=== PATIENT | female | born 1965 | race Caucasian/White ===

== ENCOUNTER → 2016-05-02 | Outpatient (CLI) | payer BC ==
[~2016-05-02] MED LIST: ATOR-54 PO; CETITAB27 PO; CYCL10TA6 PO; IBUP-1050 PO; IMD/2 PO; LEVO75TA5 PO; METH4PAK PO; OXYC1TAB3 PO
[2016-05-02 12:37] LABS: CHOLESTEROL/HDL RATIO 3.2; THYROID STIMULATING HORMONE 1.64 uIu/ml (0.300-4.500)
[2016-05-02 12:50] LABS: ESTIMATED AVERAGE GLUCOSE 117 mg/dl; HA1C FLAG Normal (Normal)
== END | disposition home or self-care (01) ==
LOC: C.LABBFT 08:59
PROVIDERS: ATTEND Internal Medicine
DX: E78.00 Pure hypercholesterolemia, unspecified (principal); R73.01 Impaired fasting glucose; E03.9 Hypothyroidism, unspecified

== ENCOUNTER 2016-07-29 09:36 | Emergency (ER) | payer BC ==
[~2016-07-29] VITALS: Ht 162.6 cm; Wt 95.0 kg
[~2016-07-29 09:36] MED LIST changes: -CETITAB27 PO; -CYCL10TA6 PO; -IBUP-1050 PO; -METH4PAK PO; -OXYC1TAB3 PO
[2016-07-29 09:38] VITALS: TEMP 36.6; Ht 162.6 cm; Wt 95.0 kg
[2016-07-29] MEDS ORDERED: KETOROLAC TROMETHAMINE 30 MG/ML VIAL IV STA (09:50)
[2016-07-29] MEDS ORDERED: ONDANSETRON INJ 2 MG/ML 2 ML VIAL IV STA (09:50)
[2016-07-29] MEDS ORDERED: CYCLOBENZAPRINE HCL 10 MG TAB PO STA (09:50)
[2016-07-29] MEDS ORDERED: MoRPHine SULFATE 10 MG/ML CARP/VIAL IV STA (09:50)
[2016-07-29] MEDS ORDERED: CETITAB27 PO (10:16)
[2016-07-29] MEDS ORDERED: IBUP-1050 PO (10:16)
--- NOTE | 2016-07-29 10:50 | DIAGNOSTIC IMAGING REPORT ---
LUMBAR SPINE 5 VIEWS HISTORY: Pain low back pain COMPARISON: None. FINDINGS: There is no fracture. No subluxation. Considerable degenerative disc change L5-S1. All remaining disc spaces are well-preserved. IMPRESSION: Considerable degenerative disc change L5-S1. Otherwise negative study Electronically signed by: Ovidio Pastor M.D. 07/29/2016 10:48 AM Dictated Date/Time: 07/29/2016 10:48 AM
[2016-07-29] MEDS ORDERED: DEXAMETHASONE SOD INJ 10 MG/ML VIAL IV ONE (11:15)
[2016-07-29] MEDS ORDERED: METH4PAK PO (11:46)
[2016-07-29] MEDS ORDERED: OXYC1TAB3 PO (11:46)
[2016-07-29] MEDS ORDERED: CYCL10TA6 PO (11:46)
--- NOTE | 2016-07-29 12:05 | EMERGENCY ROOM VISIT NOTE ---
ED Visit Note First contact with patient: 09:44 CHIEF COMPLAINT: Low back pain HISTORY OF PRESENT ILLNESS: This 51-year-old female presents to the ER with chief complaint of severe low back pain. The patient states she was doing laundry this morning and is unsure what she did put got severe pain in her lower back. She states the pain initially radiated down the back of her right leg to her knee but currently does not have any radicular pain. The patient denies any numbness and tingling. The patient denies any loss of bowel or bladder control. The patient denies any saddle anesthesia. The patient had a laminectomy at the L5-S1 level in [place] [address] Healy. She has not had any problems since that time. REVIEW OF SYSTEMS: 6 system review was performed and was negative unless stated otherwise in history of present illness. PMH: The patient is healthy; back surgery as noted in history of present illness. SOCIAL HISTORY: Patient lives with her PHYSICAL EXAM: Vital Signs normal: Reviewed Nurse's notes and agree. GENERAL: 51-year-old white female appears uncomfortable secondary to back pain. MENTAL STATUS: Alert and oriented in no acute distress. LUMBAR SPINE: No gross bony abnormality noted. Patient is nontender to palpation over the spinous processes. She is tender to palpation over the right paravertebral region, left side nontender. Limited range of motion in all directions secondary to pain. Positive straight leg raise on the right. Unable to have the patient relax to elicit reflexes. EMERGENCY DEPARTMENT COURSE: The patient was evaluated. IV access was obtained. The patient was given morphine 6 mg IV, Zofran 4 mg IV push, Toradol 30 mg IV and Flexeril 10 mg by mouth. X-ray of the lumbar spine was ordered and interpreted by the radiologist and myself. DIAGNOSTICS:LUMBAR SPINE 5 VIEWS HISTORY: Pain low back pain COMPARISON: None. FINDINGS: There is no fracture. No subluxation. Considerable degenerative disc change L5-S1. All remaining disc spaces are well-preserved. IMPRESSION: Considerable degenerative disc change L5-S1. Otherwise negative study Electronically signed by: Ovidio Pastor M.D. The patient was informed of the findings. The nurse then informed me that when she gave the patient morphine her O2 dropped to 88% on room air. She was then placed on 2 L of oxygen via nasal cannula. The patient was reevaluated and still had pain in her back but was able to sit and ambulate without any assistance. The patient was given Decadron 10 mg IV. I told her due to her low oxygen level I cannot give her any additional narcotics. The patient verbalized understanding. The patient was reevaluated again and was feeling much better. The patient was discharged home with her driving. DIAGNOSIS: Low back pain with right radiculopathy DISCHARGE INSTRUCTIONS AND TREATMENT: Take Medrol dosepak as prescribed. Ibuprofen 600 mg every 6 hours with food for pain. Rx is given for OxyIR 5 mg. 1 -2 tablets every 6 hours as needed for more severe pain. Dispense [address] taking the OxyContin. Patient was also given Rx for Flexeril 10 mg. One tablet p.o. every 8 hours for muscle spasms. Dispense [address] taking the Flexeril. Avoid staying in any one position for an extended period of time. Recommend follow-up with your family physician for reevaluation on Friday and further med pain medications if needed. Problem List Medical Problems: (1) Hypercholesteremia Status: Chronic (2) Hypothyroid Status: Chronic Surgical Problems: (1) S/P lumbar spinal fusion Status: Resolved Current/Historical Medications Scheduled Atorvastatin (Lipitor), 20 MG PO QPM Cetirizine/Pseudoephedrine (Zyrtec-D Er 5MG/120MG), 1 TAB PO DAILY Cyclobenzaprine Hcl (Flexeril), 10 MG PO TID Levothyroxine Sodium (Levothyroxine Sodium), 75 MCG PO QAM Methylprednisolone (Medrol Dosepak), 0 PO DAILY Scheduled PRN Ibuprofen (Advil), 200-600 MG PO Q4H PRN for Pain Loperamide Hcl (Imodium), 2 MG PO DAILY PRN for Diarrhea Oxycodone Immediate Rel Tab (Roxicodone Ir), 1-2 TAB PO Q6 PRN for Pain Allergies Coded Allergies: Ofloxacin (Verified Allergy, Mild, RASH, 04/26/15) Sulfamethoxazole (Verified Allergy, Unknown, DOESN'T REMEMBER, 04/26/15) Trimethoprim (Verified Allergy, Unknown, DOESN'T REMEMBER, 04/26/15) Vital Signs Date Time Temp Pulse Resp B/P (MAP) Pulse Ox O2 Delivery O2 Flow Rate FiO2 07/29/16 10:52 60 16 137/85 95 Nasal Cannula 2.0 07/29/16 09:38 36.6 84 20 151/93 96 Room Air Medications Administered Medications (Trade) Dose Ordered Sig/Pooja Route Start Time Stop Time Status Last Admin Dose Admin Morphine Sulfate (MoRPHine SULFATE INJ) 6 mg NOW STAT IV 07/29/16 09:50 07/29/16 09:58 DC 07/29/16 10:23 6 MG Ondansetron HCl (Zofran Inj) 4 mg NOW STAT IV 07/29/16 09:50 07/29/16 09:58 DC 07/29/16 10:23 4 MG Ketorolac Tromethamine (Toradol Inj) 30 mg NOW STAT IV 07/29/16 09:50 07/29/16 09:58 DC 07/29/16 10:23 30 MG Cyclobenzaprine HCl (Flexeril Tab) 10 mg NOW STAT PO 07/29/16 09:50 07/29/16 09:58 DC 07/29/16 10:23 10 MG Dexamethasone Sodium Phosphate (Decadron Inj) 10 mg NOW ONCE IV 07/29/16 11:15 07/29/16 11:16 DC 07/29/16 11:32 10 MG Departure Information Prescriptions Oxycodone Immediate Rel Tab (ROXICODONE IR) 5 Mg Tab 1-2 TAB PO Q6 Y for Pain, #20 TAB Prov: Domitila Pastor PA-C 07/29/16 Cyclobenzaprine Hcl (FLEXERIL) 10 Mg Tab 10 MG PO TID for 7 Days, #21 TAB Prov: Domitila Pastor PA-C 07/29/16 Methylprednisolone (MEDROL DOSEPAK) 4 Mg Guy 0 PO DAILY, #1 PKT Prov: Domitila Pastor PA-C 07/29/16 Referrals Rafael Ro M.D. (PCP) Patient Instructions [facility]
[2016-07-29 12:19] VITALS: BP 115/77; PULSE 56; O2SAT 96
== END 2016-07-29 12:21 | disposition home or self-care (01) ==
LOC: C.EDB 09:37
DX: M54.41 Lumbago with sciatica, right side (principal); E78.00 Pure hypercholesterolemia, unspecified; E03.9 Hypothyroidism, unspecified

== ENCOUNTER → 2016-08-12 | Outpatient (CLI) | payer BC ==
[~2016-08-12] MED LIST changes: +CETITAB27 PO; +GADAVIST IV PRN; +IBUP-1050 PO; +OXYC1TAB3 PO
--- NOTE | 2016-08-12 11:21 | DIAGNOSTIC IMAGING REPORT ---
MRI OF THE LUMBAR SPINE WITH AND WITHOUT CONTRAST CLINICAL HISTORY: Lumbar disc disorder. Low back radiating into both lower extremities. COMPARISON STUDY: Lumbar spine radiograph July 29, 2016 and MRI of the lumbar spine January 07, 2012. TECHNIQUE: Utilizing a 1.5 Afia magnet and dedicated coil, multiplanar, multiecho imaging of the lumbar spine was performed before and after uneventful IV administration of Gadavist. FINDINGS: For purposes of numbering on this exam, the L5-S1 disc space is assigned to axial image 27 of 30. Alignment of lumbar spine is anatomic. Conus terminates at the upper L1 level. There is no intracanalicular mass or fluid collection. There are postsurgical findings consistent with a posterior decompression at the L5-S1 level. There is no intracanalicular mass or fluid collection. There is disc space narrowing with discogenic changes at the L5-S1 level. There is desiccation of the L4-L5 disc. The appearance of the lumbar spine is unchanged since exam of January 07, 2012. L1-2: The central canal and neural foramen are patent. L2-3: The central canal and neural foramen are patent. L3-4: There is mild facet arthrosis. The central canal and neural foramen are patent. L4-5: There is mild facet arthrosis. There is minimal disc bulge. Central canal and neural foramen are patent. L5-S1: There is no residual central canal stenosis status post decompression. There is a small left foraminal disc protrusion. There is mild narrowing of the left neural foramen. This is unchanged. IMPRESSION: 1. Status post L5-S1 posterior decompression. No significant change in appearance of the lumbar spine since exam of January 07, 2012. 2. Disc space narrowing with discogenic changes at L5-S1 and a small left foraminal disc protrusion at this level with mild narrowing of the left neural foramen. Electronically signed by: Sylvain Ziegler M.D. 08/12/2016 11:20 AM Dictated Date/Time: 08/12/2016 11:13 AM
== END | disposition home or self-care (01) ==
LOC: C.MRI 09:42
PROVIDERS: ATTEND Physician Assistant Medical
DX: M51.06 Intervertebral disc disorders with myelopathy, lumbar region (principal); M54.16 Radiculopathy, lumbar region; R32 Unspecified urinary incontinence

== ENCOUNTER → 2016-10-10 | Outpatient (CLI) | payer BC ==
[~2016-10-10] MED LIST changes: -GADAVIST IV PRN
--- NOTE | 2016-10-10 13:58 | MAMMOGRAPHY REPORT ---
BILATERAL DIGITAL SCREENING MAMMOGRAM TOMOSYNTHESIS WITH CAD: 10/10/2016 CLINICAL HISTORY: Routine screening. Patient has no complaints. TECHNIQUE: Breast tomosynthesis in addition to standard 2D mammography was performed. Current study was also evaluated with a Computer Aided Detection (CAD) system. COMPARISON: Comparison is made to exams dated: 10/10/2015 mammogram, 10/06/2014 mammogram, 09/30/2013 m ammogram, 09/24/2012 mammogram, 09/19/2011 mammogram, and 11/16/2009 mammogram - [facility]. BREAST COMPOSITION: There are scattered areas of fibroglandular density in both breasts. FINDINGS: No suspicious masses, calcifications, or areas of architectural distortion are noted in ei ther breast. There has been no significant interval change compared to prior exams. Bilateral benign -appearing calcifications are not significantly changed, including grouped punctate calcifications in the left upper outer quadrant which are stable dating back to at least the 2008 exam. IMPRESSION: ACR BI-RADS CATEGORY 2: BENIGN There is no mammographic evidence of malignancy. A 1 year screening mammogram is recommended. The pa tient will receive written notification of the results. Approximately 10% of breast cancers are not detected with mammography. A negative mammographic report should not delay biopsy if a clinically suggestive mass is present. Danica Saucedo M.D. /:10/10/2016 07:44:58 Senior Electronics Engineer: Poonam OLVERA)(M), [facility] letter sent: Normal 1/2 BI-RADS Code: ACR BI-RADS Category 2: Benign
== END | disposition home or self-care (01) ==
LOC: C.MAMM 07:23
PROVIDERS: ATTEND Obstetrics & Gynecology
DX: Z12.31 Encounter for screening mammogram for malignant neoplasm of breast (principal)

== ENCOUNTER → 2016-11-15 | Outpatient (CLI) | payer BC ==
--- NOTE | 2016-11-15 15:26 | DIAGNOSTIC IMAGING REPORT ---
LEFT LOWER EXTREMITY VENOUS DOPPLER HISTORY: Left leg swelling. COMPARISON STUDY: Venous Doppler 09/14/2013. FINDINGS: There is normal compressibility, flow, and augmentation within the left lower extremity deep venous system. IMPRESSION: No DVT within the left lower extremity. Electronically signed by: Fletcher Coy M.D. 11/15/2016 3:24 PM Dictated Date/Time: 11/15/2016 3:24 PM
== END | disposition home or self-care (01) ==
LOC: C.ULTR 14:53
PROVIDERS: ATTEND Physician Assistant Medical
DX: M79.89 Other specified soft tissue disorders (principal)

== ENCOUNTER → 2016-11-15 | Outpatient (CLI) | payer BC ==
[2016-11-15 12:58] LABS: BLOOD UREA NITROGEN 18 mg/dl (7-18); CREATININE 0.68 mg/dl (0.60-1.20); GLUCOSE 98 mg/dl (70-99)
[2016-11-15 12:59] LABS: ALT/SGPT 33 U/L (12-78); AST/SGOT 21 U/L (15-37); BUN/CREATININE RATIO 26.6 (10-20); CALCIUM 9.1 mg/dl (8.5-10.1); CARBON DIOXIDE 27 mmol/L (21-32); CHLORIDE 110 mmol/L (98-107); POTASSIUM 4.3 mmol/L (3.5-5.1); SODIUM 143 mmol/L (136-145)
[2016-11-15 13:09] LABS: ALB/GLOB RATIO 0.9 (0.9-2); ALKALINE PHOSPHATASE 75 U/L (45-117); CHOLESTEROL 135 mg/dl (0-200); CHOLESTEROL/HDL RATIO 2.5; HDL CHOLESTEROL 55 mg/dl; LDL CHOLESTEROL CALCULATED 62 mg/dl; TRIGLYCERIDES 88 mg/dl (0-150); VERY LOW DENSITY LIPOPROT CALC 18 mg/dl
[2016-11-15 13:10] LABS: ESTIMATED AVERAGE GLUCOSE 117 mg/dl; HA1C FLAG Normal (Normal)
== END | disposition home or self-care (01) ==
LOC: C.LABBFT 08:18
PROVIDERS: ATTEND Internal Medicine
DX: E78.00 Pure hypercholesterolemia, unspecified (principal); E03.9 Hypothyroidism, unspecified; R73.01 Impaired fasting glucose

== ENCOUNTER → 2017-05-23 | Outpatient (CLI) | payer BC ==
[~2017-05-23] MED LIST changes: -OXYC1TAB3 PO
[2017-05-23 12:20] LABS: HEMATOCRIT 45.1 % (37-47); HEMOGLOBIN 15.2 g/dL (12.0-16.0); MEAN CELL VOLUME 89.8 fL (80-100); MEAN CORPUSCULAR HEMOGLOBIN 30.3 pg (25-34); MEAN CORPUSCULAR HGB CONC 33.7 g/dl (32-36); MEAN PLATELET VOLUME 9.6 fL (7.4-10.4); PLATELET COUNT 416 K/uL (130-400); RED CELL DISTRIBUTION WIDTH CV 14.6 % (11.5-14.5); RED CELL DISTRIBUTION WIDTH SD 47.7 fL (36.4-46.3); WHITE BLOOD COUNT 9.69 K/uL (4.8-10.8)
[2017-05-23 12:45] LABS: HEMOGLOBIN A1C 5.9 % (4.5-5.6)
[2017-05-23 13:25] LABS: ALBUMIN 3.3 gm/dl (3.4-5.0); ALT/SGPT 26 U/L (12-78); AST/SGOT 16 U/L (15-37); BLOOD UREA NITROGEN 20 mg/dl (7-18); CALCIUM 8.6 mg/dl (8.5-10.1); CARBON DIOXIDE 31 mmol/L (21-32); CREATININE 0.95 mg/dl (0.60-1.20); GLUCOSE 93 mg/dl (70-99); POTASSIUM 3.7 mmol/L (3.5-5.1); SODIUM 143 mmol/L (136-145)
[2017-05-23 13:36] LABS: ALKALINE PHOSPHATASE 79 U/L (45-117); CHOLESTEROL 167 mg/dl (0-200); LDL CHOLESTEROL CALCULATED 102 mg/dl; TOTAL PROTEIN 7.2 gm/dl (6.4-8.2)
== END | disposition home or self-care (01) ==
LOC: C.LABBFT 08:23
PROVIDERS: ATTEND Internal Medicine
DX: E78.00 Pure hypercholesterolemia, unspecified (principal); E03.9 Hypothyroidism, unspecified; R73.01 Impaired fasting glucose

== ENCOUNTER 2024-10-14 10:58 | Inpatient (IN) ==
[2024-10-14 12:38] LABS: Hematocrit (blood only) 42.5 % (37.0-47.0); Hemoglobin 14.0 g/dl (12.0-16.0); Mean Corpuscular Hemoglobin 28.6 pg (25.0-34.0); Mean Corpuscular Volume 86.7 fL (80.0-100.0); Platelet Count 468 K/uL (130-400); RDW Standard Deviation 44.2 fL (36.4-46.3); Red Blood Count 4.90 M/uL (4.20-5.40); White Blood Count 16.34 K/ul (4.8-10.8)
[2024-10-14] MEDS: SODIUM CHLORIDE 0.9% 1,000 ML IV ONE ×2 (12:47→16:19)
--- NOTE | 2024-10-14 12:51 | Emergency Department Note ---
ED Provider Note CHIEF COMPLAINT: Low blood pressure, weakness, lightheadedness HISTORY OF PRESENTING ILLNESS: This 59-year-old female patient presents to the emergency department for evaluation of low blood pressure, weakness, and lightheadedness. The patient was seen by her PCP this morning and sent to the ER for her symptoms. I reviewed the patient's outpatient office visit note and her blood pressure in the office was 82/58. She has a history of vertigo in the past, but the symptoms do not feel the same. She also has new onset shortness of breath. She is not on any medications for hypertension per her office visit note. The patient was advised to come to the ER for further evaluation. REVIEW OF SYSTEMS: See HPI for pertinent positives and pertinent negatives. ALLERGIES: [] MEDICATIONS: [] PAST MEDICAL HISTORY: [] PHYSICAL EXAM: [] DIFFERENTIAL DIAGNOSIS: [] ED COURSE AND MEDICAL DECISION MAKING: HISTORY FROM INDEPENDENT HISTORIAN: [] MEDICATIONS GIVEN: [] MONITOR: Continuous business development executive: Order was placed for continuous business development executive. Patient was placed on the business development executive and continuous pulse ox. Patient was noted to be in normal sinus rhythm at an initial rate of [] bpm per my interpretation. EKG: EKG was interpreted by myself as []. INTERPRETATION OF LABS: I interpreted the labs with full lab results as below in the lab section of this note. Laboratory results pertinent to the emergent complaint are discussed in the MDM section below. The patient was advised to follow up with their PCP and/or specialist(s) for further outpatient monitoring and management of any abnormal results. INTERPRETATION OF IMAGING: Imaging studies were interpreted by myself and read by radiology as per the imaging section of this note. The patient was advised to follow up with their PCP and/or specialist(s) for further outpatient management of any non-emergent abnormal findings. [] EXTERNAL RECORDS REVIEWED: [] CHRONIC MEDICAL/SOCIAL CONDITIONS AFFECTING CARE: [] ESCALATION OF CARE CONSIDERED: [] CONSULTATIONS: [] PROCEDURES: [] SPLINTING: Definitive fracture care was performed by myself. The patient was placed in [] under my direction. Neurovascular status was rechecked and intact. MDM SUMMARY: I examined the patient. An IV lock was placed and labs were drawn. []. The patient is to have close outpatient follow-up with a recheck of their symptoms. To return to the ER sooner for any significantly changing or worsening symptoms. The [] educated on the treatment plan and the discharge instructions. The patient was discharged home in stable condition []. DIAGNOSIS: [] TREATMENT PLAN/DISCHARGE INSTRUCTIONS: [] You have been examined and treated today on an emergency basis only. Your workup in the ER did not reveal the need for further emergency workup/treatment or admission at this time. However, this ER visit is not a substitute for, or an effort to provide, complete comprehensive medical care. It is impossible to recognize and treat all injuries or illnesses in a single emergency department visit. It is therefore important that you follow up closely with your family doctor and/or your specialist(s) if applicable for further outpatient evaluation and treatment. It is also important that you follow-up with your family doctor and/or your specialist(s) for further monitoring and outpatient management of any abnormalities seen on your laboratory studies and/or imaging. Call your family doctor and/or specialist(s) as soon as possible to schedule an appointment for follow up from your emergency department visit. Past Med/Surg History Problem List (Updated 10/14/24 @ 10:43 by Power Wynn, ) Dyspnea Low blood pressure reading Lightheadedness Thyroid Nodule Prediabetes Left knee pain Face lesion Generalized anxiety disorder Hypothyroid (Chronic) Hypercholesteremia (Chronic) GERD (gastroesophageal reflux disease) (Chronic) Impaired fasting glucose Severe obstructive sleep apnea Nocturnal hypoxemia Obesity Lumbosacral radiculopathy at L5 (Acute) Situational anxiety Medical History Generalized anxiety disorder Internal hemorrhoids Mucosal abnormality of colon Urinary incontinence Osteomyelitis Chest pain "EST Negative 08-13-13" Surgical History History of ankle surgery S/P section History of lumbar laminectomy Status post tubal ligation S/P lumbar spinal fusion Family History Uncle Tobacco use Laryngeal cancer Mother Cancer History of pancreatectomy Ovarian cancer Grandfather (Maternal) FH: pancreatic cancer Colorectal cancer Daughter Breast cancer Grandmother (Paternal) Breast cancer Myocardial infarction Aunt Breast cancer Other Diabetes Denies family history of Prostate cancer Social History Smoking Status: Never smoker Second Hand Exposure: No; Do You Dip or Chew Tobacco: No; Hx Alcohol Use: No Hx Substance Use: No Preferred Language: Chadian Communication Ability: Effective Visual Impairment: No Limitations Hearing Ability: Normal marital status: Current Living Situation: Spouse current occupational status: employed Feels Safe at Home: Yes Diet: regular caffeine: Yes Dental Care, Regularly: Yes Physical Activity Frequency: Does not Exercise Physical Activity Frequency Comment: active at work Seatbelt Use: always Sunscreen Use: Yes Assistive Devices: Glasses Allergies Allergies Allergy/AdvReac Type Severity Reaction Status Date / Time ofloxacin Allergy Mild RASH Verified 10/14/24 10:26 sulfamethoxazole Allergy Unknown DOESN'T Verified 10/14/24 10:26 REMEMBER trimethoprim Allergy Unknown DOESN'T Verified 10/14/24 10:26 REMEMBER Home Meds Home Medications Medication Instructions Recorded Confirmed cetirizine 10 mg capsule 10 mg PO DIRECTED 11/20/18 10/14/24 multivitamin (Multiple Vitamins 1 tab PO DAILY 07/12/21 10/14/24 tablet) naproxen 250 mg tablet 250 mg PO BID PRN Pain 12/26/23 10/14/24 Previous Rx's Medication Instructions Recorded buspirone 15 mg tablet 15 mg PO BID #180 tabs 04/08/24 atorvastatin 20 mg tablet 20 mg PO HS #90 tabs 07/02/24 levothyroxine 100 mcg tablet 100 mcg PO DAILY #90 tabs 07/02/24 meclizine 25 mg chewable tablet 25 mg PO BID PRN dizziness #30 tabs 07/23/24 (Antivert) Results & Data (ED) Vital Signs Vital Signs - 24 hr 10/14/24 11:38 Temperature 36.9 C Temperature Source Oral Pulse Rate 89 Respiratory Rate 19 Blood Pressure 96/65 L Blood Pressure Mean 75 Pulse Oximetry 93 Oxygen Delivery Method Room Air Sepsis Recent Fever Within 48 Hours No Sepsis New/Unexplained Change in Mental Status No Sepsis Action Taken by Nursing No Action Required Laboratory Data 10/14/24 12:20 10/14/24 12:20 Lab Results 10/14/24 Range/Units 12:20 WBC 16.34 H (4.8-10.8) K/ul RBC 4.90 (4.20-5.40) M/uL Hgb 14.0 (12.0-16.0) g/dl Hct 42.5 (37.0-47.0) % MCV 86.7 (80.0-100.0) fL MCH 28.6 (25.0-34.0) pg MCHC 32.9 (32.0-36.0) g/dL RDW Std Deviation 44.2 (36.4-46.3) fL RDW Coeff of Bhumi 14.2 (11.5-14.5) % Plt Count 468 H (130-400) K/uL MPV 9.2 L (9.4-12.4) fL Administered Medications Sodium Chloride (Nss) 1,000 mls @ 999 mls/hr IV .Q1H1M ONE Stop: 10/14/24 13:39 Last Admin: 10/14/24 12:47 Dose: 999 mls/hr Documented By: TDM Discharge Plan Visit Data Chief Complaint: Hypotension Stated Complaint: REF BY DOC, LOW BLOOD PRESSURE ED Provider: Aruna Sood ED Midlevel Provider: Roz Madison Forms Stand Alone Forms: My [facility] Prescriptions Prescriptions: No Action buspirone 15 mg tablet 15 mg PO BID Qty: 180 3RF multivitamin [Multiple Vitamins] Tablet 1 tab PO DAILY Rx Instructions: otc unable to verify Zyrtec 10 mg capsule 10 mg PO DIRECTED Rx Instructions: otc unable to verify naproxen 250 mg tablet 250 mg PO BID PRN (Reason: Pain) levothyroxine 100 mcg tablet 100 mcg PO DAILY Qty: 90 3RF atorvastatin 20 mg tablet 20 mg PO HS Qty: 90 3RF meclizine [Antivert] 25 mg tablet,chewable 25 mg PO BID PRN (Reason: dizziness) Qty: 30 0RF Referrals Referrals: Power Wynn DO [Primary Care Provider] -
[2024-10-14 12:54] LABS: Alanine Aminotransferase 22 U/L (7-52); Albumin Globulin Ratio 0.7 (0.9-2); Alkaline Phosphatase 104 U/L (34-104); Anion Gap 8 (3-11); Bilirubin,Total 0.8 mg/dl (0.2-1.0); Blood Urea Nitrogen 18 mg/dl (6-23); Calcium 9.3 mg/dl (8.6-10.3); Carbon Dioxide 27 mmol/L (21-32); Chloride 103 mmol/L (98-107); Globulin 4.6 gm/dl (2.5-4.0); Glucose 129 mg/dl (70-99(Fasting)); Potassium 3.9 mmol/L (3.5-5.1); Sodium 138 mmol/L (136-145); Total Protein 7.9 gm/dl (6.0-8.3)
--- NOTE | 2024-10-14 12:59 | XRay Report ---
XR chest 1V portable CLINICAL HISTORY: Chest pain, nonspecific COMPARISON STUDY: Chest radiograph July 22, 2024. FINDINGS: Lung volumes are mildly diminished. Linear left basilar densities are noted. Mild right inf rahilar opacity is also suspected. Cardiomediastinal silhouette is stable. There is no evidence for p ulmonary edema. No pneumothorax or pleural effusion. IMPRESSION: Low lung volumes with bibasilar densities suggestive of atelectasis. Although less likel y, an infectious process could appear similar. Radiographic follow-up to ensure resolution is recomme nded. ACT 112: Negative or not required by law. Electronically signed by: Sylvain Ziegler M.D. 10/14/2024 12:57 PM
[2024-10-14 13:00] LABS: Immature Granulocytes # (auto) 0.09 K/uL (0.01-0.20); Immature Granulocytes % (auto) 0.6 %; Polychromasia 1+; Toxic Vacuolation 1+
[2024-10-14] MEDS: CEFEPIME 2000MG 2,000 MG/20 ML SYR IV STA (13:01)
--- NOTE | 2024-10-14 13:28 | Emergency Department Note ---
Impression & Plan Hypoxia, Hypotension, UTI (urinary tract infection), Pneumonia, Leukocytosis ED Provider Note NAME: YENI LIU AGE: 59 SEX: F : 1965 ARRIVES VIA: Walk-In INFORMANT: [Patient] ED PROVIDER(S): [Arpan Trammell MD] CHIEF COMPLAINT: Hypotension HISTORY OF PRESENT ILLNESS: The patient is a 59-year-old female who states she did not feel well yesterday. She was weak and tired and had some chills towards the evening. Today, she tried going to work but, felt unwell again. She was dizzy and faint. She had one of the nurses at her place of work run a blood pressure check and the value was low. She went to her doctor's office but, the blood pressure was again low and she was sent to the ED. Patient denies any chest pain. She did notice some mild shortness of breath. No sweating. No fever. No urinary complaints. No vomiting or abdominal pain, no diarrhea. PMHx/PSHx/Social Hx: See Below PHYSICAL EXAM: GENERAL: Patient is in no acute distress. HEENT: No acute trauma, normocephalic atraumatic, mucous membranes moist, no nasal congestion. NECK: No stridor, no adenopathy, no meningismus, trachea is midline. LUNGS: Clear to auscultation bilaterally, no wheeze, no rhonchi, breath sounds equal. Breath sounds diminished bilaterally. HEART: Without murmurs gallops or rubs, regular rate and rhythm. ABDOMEN: Soft, nontender, no peritonitis. EXTREMITIES: No cyanosis, full range of motion of all the joints without pain or difficulty. NEUROLOGIC: Oriented x 3, no acute motor or sensory deficits, no focal weakness. SKIN: No jaundice, no diaphoresis. DIFFERENTIAL DIAGNOSIS: Bacteremia or sepsis, pneumonia, UTI, anemia, electrolyte imbalance, dehydration, among others. EMERGENCY DEPARTMENT PROCEDURES: MEDICAL DECISION MAKING: There is a moderate leukocytosis, this would be consistent with infection. There is no anemia. Platelet count slightly elevated. No coagulopathy. No renal failure or significant electrolyte abnormality. Lactic acid level is not elevated making sepsis less likely. No concerning liver enzyme elevation. ECG shows a sinus rhythm, no ischemia or dysrhythmia. Cardiac enzyme testing x 1 is not consistent with acute cardiac injury. Urinalysis is suggestive of infection. Chest x-ray does show a potential bilateral lower lung pneumonia. On exam, the patient was somewhat hypotensive, she was complaining of chills. She did not seem toxic. She did become hypoxic during her ED stay requiring O2 supplementation. The patient was given IV saline, 2 L. This amount of saline should suffice for sepsis protocol at 30 cc/kg based on her ideal body weight. She was given IV cefepime as antibiotic coverage. She was given IV Tylenol. She was given a DuoNeb. The patient's blood pressure did improve after the IV fluids, at this point, she is not in need of IV pressor therapy. I did talk to the patient about a hospital stay, she is in agreement. I spoke with case management, the on-call hospitalist was consulted. In short, the reason for the hypotension is likely infection. Prior/Outside records/notes reviewed: None ECG per my interpretation: Indication was dizziness. The ECG shows a normal sinus rhythm with a rate of 84. There is some nonspecific ST change. There is no ST elevation, no PVCs. QTc is 411. Continuous Cardiac Monitoring per my interpretation: An order was placed for continuous cardiac monitoring. The monitor shows a rate of 81 with normal sinus rhythm. Imaging/x-ray results per my interpretation: Chest x-ray shows some congestion in both bases especially on the left, this could be consistent with atelectasis or possibly pneumonia. Chronic Medical/Social conditions affecting care: None Care/Management discussed with: Case management, the on-call hospitalist. Level of care consideration(s): After review of the information above and other included data: --I believe the patient requires escalation of care to admission Critical Care Note: I have personally spent 51 minutes of critical care time in the direct management of this patient. This includes bedside care, interpretation of diagnostic studies, and testing, discussion with consultants, patient, and family members, and other required patient management activities. This 51 minutes is in excess of all separately billable procedures. DISPOSITION: Admission Past Med/Surg History Problem List (Updated 10/14/24 @ 17:17 by Arpan Trammell MD) Leukocytosis (Acute) Pneumonia (Acute) UTI (urinary tract infection) (Acute) Hypotension (Acute) Hypoxia (Acute) Fever Dyspnea Low blood pressure reading Lightheadedness Thyroid Nodule Prediabetes Left knee pain Face lesion Generalized anxiety disorder Hypothyroid (Chronic) Hypercholesteremia (Chronic) GERD (gastroesophageal reflux disease) (Chronic) Impaired fasting glucose Severe obstructive sleep apnea Nocturnal hypoxemia Obesity Lumbosacral radiculopathy at L5 (Acute) Situational anxiety Medical History Internal hemorrhoids Mucosal abnormality of colon Urinary incontinence Osteomyelitis Chest pain "EST Negative 08-13-13" Surgical History History of ankle surgery S/P section History of lumbar laminectomy Status post tubal ligation S/P lumbar spinal fusion Family History Uncle Tobacco use Laryngeal cancer Mother Cancer History of pancreatectomy Ovarian cancer Grandfather (Maternal) FH: pancreatic cancer Colorectal cancer Daughter Breast cancer Grandmother (Paternal) Breast cancer Myocardial infarction Aunt Breast cancer Other Diabetes Denies family history of Prostate cancer Social History Smoking Status: Never smoker Second Hand Exposure: No; Do You Dip or Chew Tobacco: No; Hx Alcohol Use: No Hx Substance Use: No Preferred Language: Portuguese Communication Ability: Effective Visual Impairment: No Limitations Hearing Ability: Normal marital status: Current Living Situation: Spouse current occupational status: employed Feels Safe at Home: Yes Diet: regular caffeine: Yes Dental Care, Regularly: Yes Physical Activity Frequency: Does not Exercise Physical Activity Frequency Comment: active at work Seatbelt Use: always Sunscreen Use: Yes Assistive Devices: Glasses Allergies Allergies Allergy/AdvReac Type Severity Reaction Status Date / Time ofloxacin Allergy Mild RASH Verified 10/14/24 14:55 sulfamethoxazole Allergy Unknown DOESN'T Verified 10/14/24 14:55 REMEMBER trimethoprim Allergy Unknown DOESN'T Verified 10/14/24 14:55 REMEMBER Home Meds Home Medications Medication Instructions Recorded Confirmed cetirizine 10 mg capsule 10 mg PO DAILY PRN Congestion 11/20/18 10/14/24 multivitamin (Multiple Vitamins 1 tab PO DAILY 07/12/21 10/14/24 tablet) naproxen 250 mg tablet 250 mg PO BID PRN Pain 12/26/23 10/14/24 levothyroxine 100 mcg tablet 100 mcg PO DAILYBB 10/14/24 10/14/24 Previous Rx's Medication Instructions Recorded buspirone 15 mg tablet 15 mg PO BID #180 tabs 04/08/24 atorvastatin 20 mg tablet 20 mg PO HS #90 tabs 07/02/24 meclizine 25 mg chewable tablet 25 mg PO BID PRN dizziness #30 tabs 07/23/24 (Antivert) Results & Data (ED) Vital Signs Vital Signs - 24 hr 10/14/24 11:38 10/14/24 12:54 10/14/24 12:58 Temperature 36.9 C Temperature Source Oral Pulse Rate 89 78 Pulse Rate [Apical] 81 Pulse Rate from SpO2 Sensor Pulse Rhythm [Apical] Regular Pulse Strength [Apical] Normal Respiratory Rate 19 20 Respiratory Effort / Characteristics Non-Labored Spontaneous Respiratory Depth Normal Respiratory Pattern Regular Blood Pressure 96/65 L Blood Pressure [Left Arm] 107/67 Blood Pressure Mean 75 Blood Pressure Mean [Left Arm] 80 Pulse Oximetry 93 94 Oxygen Delivery Method Room Air Room Air Oxygen Flow Rate Sepsis Recent Fever Within 48 Hours No Sepsis New/Unexplained Change in Mental Status No Sepsis Action Taken by Nursing No Action Required 10/14/24 14:41 10/14/24 15:00 10/14/24 15:00 Temperature Temperature Source Pulse Rate 106 H Pulse Rate [Apical] 100 H Pulse Rate from SpO2 Sensor Pulse Rhythm [Apical] Pulse Strength [Apical] Respiratory Rate 24 30 H Respiratory Effort / Characteristics Non-Labored Spontaneous Respiratory Depth Normal Respiratory Pattern Regular Blood Pressure 134/82 Blood Pressure [Left Arm] 143/87 H Blood Pressure Mean 91 Blood Pressure Mean [Left Arm] 105 Pulse Oximetry 92 87 L Oxygen Delivery Method Room Air Room Air Oxygen Flow Rate Sepsis Recent Fever Within 48 Hours Sepsis New/Unexplained Change in Mental Status Sepsis Action Taken by Nursing 10/14/24 15:05 10/14/24 15:31 10/14/24 15:41 Temperature Temperature Source Pulse Rate 111 H 107 H Pulse Rate [Apical] Pulse Rate from SpO2 Sensor Pulse Rhythm [Apical] Pulse Strength [Apical] Respiratory Rate 23 Respiratory Effort / Characteristics Respiratory Depth Respiratory Pattern Blood Pressure 111/79 96/61 L Blood Pressure [Left Arm] Blood Pressure Mean 87 71 Blood Pressure Mean [Left Arm] Pulse Oximetry 93 92 83 L Oxygen Delivery Method Nasal Cannula Nasal Cannula Room Air Oxygen Flow Rate 6 6 Sepsis Recent Fever Within 48 Hours Sepsis New/Unexplained Change in Mental Status Sepsis Action Taken by Nursing 10/14/24 15:42 10/14/24 15:47 10/14/24 16:06 Temperature 37 C Temperature Source Oral Pulse Rate 108 H 109 H Pulse Rate [Apical] Pulse Rate from SpO2 Sensor 108 H 109 H Pulse Rhythm [Apical] Pulse Strength [Apical] Respiratory Rate 14 20 Respiratory Effort / Characteristics Respiratory Depth Respiratory Pattern Blood Pressure Blood Pressure [Left Arm] Blood Pressure Mean Blood Pressure Mean [Left Arm] Pulse Oximetry 92 93 Oxygen Delivery Method Nebulizer Nasal Cannula Oxygen Flow Rate 6 Sepsis Recent Fever Within 48 Hours Sepsis New/Unexplained Change in Mental Status Sepsis Action Taken by Nursing 10/14/24 16:30 Temperature Temperature Source Pulse Rate 98 H Pulse Rate [Apical] Pulse Rate from SpO2 Sensor 98 H Pulse Rhythm [Apical] Pulse Strength [Apical] Respiratory Rate 16 Respiratory Effort / Characteristics Respiratory Depth Respiratory Pattern Blood Pressure 93/70 L Blood Pressure [Left Arm] Blood Pressure Mean 77 Blood Pressure Mean [Left Arm] Pulse Oximetry 94 Oxygen Delivery Method Nasal Cannula Oxygen Flow Rate 6 Sepsis Recent Fever Within 48 Hours Sepsis New/Unexplained Change in Mental Status Sepsis Action Taken by [facility] Medications Current Medication List: was personally reviewed by me Laboratory Data Attestation: I reviewed the patient's lab results. 10/14/24 12:20 10/14/24 12:20 Lab Results 10/14/24 10/14/24 10/14/24 Range/Units 12:20 12:46 14:02 WBC 16.34 H (4.8-10.8) K/ul RBC 4.90 (4.20-5.40) M/uL Hgb 14.0 (12.0-16.0) g/dl Hct 42.5 (37.0-47.0) % MCV 86.7 (80.0-100.0) fL MCH 28.6 (25.0-34.0) pg MCHC 32.9 (32.0-36.0) g/dL RDW Std Deviation 44.2 (36.4-46.3) fL RDW Coeff of Bhumi 14.2 (11.5-14.5) % Plt Count 468 H (130-400) K/uL MPV 9.2 L (9.4-12.4) fL Immature Gran % (Auto) 0.6 % Neut % (Auto) 90.3 % Lymph % (Auto) 5.7 % [place] % (Auto) 2.5 % Eos % (Auto) 0.4 % Baso % (Auto) 0.5 % Neut # (Auto) 14.77 H (1.40-6.50) K/uL Lymph # (Auto) 0.93 L (1.20-3.40) K/uL [place] # (Auto) 0.41 (0.11-0.59) K/uL Eos # (Auto) 0.06 (0.00-0.50) K/uL Baso # (Auto) 0.08 (0.00-0.20) K/uL Immature Gran # (Auto) 0.09 (0.01-0.20) K/uL Toxic Vacuolation 1+ Polychromasia 1+ PT Cancelled 11.9 INR Cancelled 1.1 APTT Cancelled 29 PTT Ratio Cancelled 1.1 Sodium 138 (136-145) mmol/L Potassium 3.9 (3.5-5.1) mmol/L Chloride 103 (98-107) mmol/L Carbon Dioxide 27 (21-32) mmol/L Anion Gap 8 (3-11) BUN 18 (6-23) mg/dl Creatinine 1.04 (0.6-1.2) mg/dl Est Cr Clr Drug Dosing Not Reportable eGFR 61.15 BUN/Creatinine Ratio 17.3 (10-20) Glucose 129 H (70-99(Fasting)) mg/dl Lactate 1.5 (0.4-2.0) mmol/L Calcium 9.3 (8.6-10.3) mg/dl Magnesium 2.4 (1.7-2.4) mg/dl Total Bilirubin 0.8 (0.2-1.0) mg/dl AST 23 (13-39) U/L ALT 22 (7-52) U/L Alkaline Phosphatase 104 (34-104) U/L Troponin I High Sens 7.0 (0-14) pg/ml Total Protein 7.9 (6.0-8.3) gm/dl Albumin 3.3 L (3.4-5.0) gm/dl Globulin 4.6 H (2.5-4.0) gm/dl Albumin/Globulin Ratio 0.7 L (0.9-2) Urine Color Urine Appearance (Clear) Urine pH (4.5-7.5) Ur Specific Evans (1.000-1.030) Urine Protein (Negative) Urine Glucose (UA) (Negative) Urine Ketones (Negative) Urine Blood (Negative) Urine Nitrite (Negative) Urine Bilirubin (Negative) Urine Urobilinogen (Negative) Ur Leukocyte Esterase (Negative) Urine WBC (Auto) (0-5) /hpf Urine RBC (Auto) (0-2) /hpf U Hyaline Cast (Auto) (0-2) /lpf U Epithel Cells (Auto) (0-2) /hpf Urine Bacteria (Auto) (None Seen) Urine Comment 10/14/24 Range/Units 15:44 WBC (4.8-10.8) K/ul RBC (4.20-5.40) M/uL Hgb (12.0-16.0) g/dl Hct (37.0-47.0) % MCV (80.0-100.0) fL MCH (25.0-34.0) pg MCHC (32.0-36.0) g/dL RDW Std Deviation (36.4-46.3) fL RDW Coeff of Bhumi (11.5-14.5) % Plt Count (130-400) K/uL MPV (9.4-12.4) fL Immature Gran % (Auto) % Neut % (Auto) % Lymph % (Auto) % [place] % (Auto) % Eos % (Auto) % Baso % (Auto) % Neut # (Auto) (1.40-6.50) K/uL Lymph # (Auto) (1.20-3.40) K/uL [place] # (Auto) (0.11-0.59) K/uL Eos # (Auto) (0.00-0.50) K/uL Baso # (Auto) (0.00-0.20) K/uL Immature Gran # (Auto) (0.01-0.20) K/uL Toxic Vacuolation Polychromasia PT INR APTT PTT Ratio Sodium (136-145) mmol/L Potassium (3.5-5.1) mmol/L Chloride (98-107) mmol/L Carbon Dioxide (21-32) mmol/L Anion Gap (3-11) BUN (6-23) mg/dl Creatinine (0.6-1.2) mg/dl Est Cr Clr Drug Dosing eGFR BUN/Creatinine Ratio (10-20) Glucose (70-99(Fasting)) mg/dl Lactate (0.4-2.0) mmol/L Calcium (8.6-10.3) mg/dl Magnesium (1.7-2.4) mg/dl Total Bilirubin (0.2-1.0) mg/dl AST (13-39) U/L ALT (7-52) U/L Alkaline Phosphatase (34-104) U/L Troponin I High Sens (0-14) pg/ml Total Protein (6.0-8.3) gm/dl Albumin (3.4-5.0) gm/dl Globulin (2.5-4.0) gm/dl Albumin/Globulin Ratio (0.9-2) Urine Color Dark Yellow Urine Appearance Clear (Clear) Urine pH 6.5 (4.5-7.5) Ur Specific Evans 1.025 (1.000-1.030) Urine Protein 1+ H (Negative) Urine Glucose (UA) Negative (Negative) Urine Ketones Trace H (Negative) Urine Blood 2+ H (Negative) Urine Nitrite Positive A (Negative) Urine Bilirubin Negative (Negative) Urine Urobilinogen Negative (Negative) Ur Leukocyte Esterase 1+ H (Negative) Urine WBC (Auto) 21-50 H (0-5) /hpf Urine RBC (Auto) >20 H (0-2) /hpf U Hyaline Cast (Auto) 3-5 H (0-2) /lpf U Epithel Cells (Auto) 11-20 H (0-2) /hpf Urine Bacteria (Auto) 2+ H (None Seen) Urine Comment Administered Medications Discontinued Medications Albuterol (Albut/Ipratrop 3mg/0.5mg Neb 3 Ml Vial) 3 ml NEB NOW STA; Protocol Stop: 10/14/24 15:19 Last Admin: 10/14/24 15:43 Dose: 3 ml Documented By: ANN Sodium Chloride (Nss) 1,000 mls @ 999 mls/hr IV .Q1H1M ONE Stop: 10/14/24 13:39 Last Infusion: 10/14/24 15:15 Dose: Infused Documented By: Admin: 10/14/24 12:47 Dose: 999 mls/hr Documented By: TDFaith Cefepime HCl (Maxipime 2000mg) 2,000 mg in 20 mls @ 5 mls/min IV NOW STA; Protocol Stop: 10/14/24 12:55 Last Admin: 10/14/24 13:01 Dose: 5 mls/min Documented By: TDM Acetaminophen (Ofirmev) 1,000 mg in 100 mls @ 400 mls/hr IV NOW STA Stop: 10/14/24 15:14 Last Infusion: 10/14/24 15:42 Dose: Infused Documented By: Admin: 10/14/24 15:13 Dose: 400 mls/hr Documented By: TDM Sodium Chloride (Nss) 1,000 mls @ 999 mls/hr IV .Q1H1M ONE Stop: 10/14/24 17:07 Last Admin: 10/14/24 16:19 Dose: 999 mls/hr Documented By: ANN Imaging Data Radiologist's Impression: Chest X-Ray 10/14/24 11:43 XR chest 1V portable CLINICAL HISTORY: Chest pain, nonspecific COMPARISON STUDY: Chest radiograph July 22, 2024. FINDINGS: Lung volumes are mildly diminished. Linear left basilar densities are noted. Mild right infrahilar opacity is also suspected. Cardiomediastinal silhouette is stable. There is no evidence for pulmonary edema. No pneumothorax or pleural effusion. IMPRESSION: Low lung volumes with bibasilar densities suggestive of atelectasis. Although less likely, an infectious process could appear similar. Radiographic follow-up to ensure resolution is recommended. ACT 112: Negative or not required by law. Electronically signed by: Sylvain Ziegler M.D. 10/14/2024 12:57 PM Discharge Plan Visit Data Chief Complaint: Hypotension Stated Complaint: REF BY DOC, LOW BLOOD PRESSURE ED Provider: Arpan Trammell Discharge Problem: Hypoxia, Hypotension, UTI (urinary tract infection), Pneumonia, Leukocytosis Patient Disposition: Admitted As Inpatient Condition: Fair Forms Stand Alone Forms: My [employer] Prescriptions Prescriptions: No Action buspirone 15 mg tablet 15 mg PO BID Qty: 180 3RF multivitamin [Multiple Vitamins] Tablet 1 tab PO DAILY Zyrtec 10 mg capsule 10 mg PO DAILY PRN (Reason: Congestion) naproxen 250 mg tablet 250 mg PO BID PRN (Reason: Pain) atorvastatin 20 mg tablet 20 mg PO HS Qty: 90 3RF meclizine [Antivert] 25 mg tablet,chewable 25 mg PO BID PRN (Reason: dizziness) Qty: 30 0RF levothyroxine 100 mcg tablet 100 mcg PO DAILYBB Referrals Referrals: Power Wynn DO [Primary Care Provider] - Discharge Problem: Hypotension Qualifiers: Hypotension type: unspecified hypotension type Qualified Code(s): I95.9 - Hypotension, unspecified UTI (urinary tract infection) Qualifiers: Urinary tract infection type: acute cystitis Hematuria presence: without hematuria Qualified Code(s): N30.00 - Acute cystitis without hematuria Pneumonia Qualifiers: Pneumonia type: due to unspecified organism Laterality: bilateral Lung location: lower lobe of lung Qualified Code(s): J18.9 - Pneumonia, unspecified organism Leukocytosis Qualifiers: Leukocytosis type: unspecified Qualified Code(s): D72.829 - Elevated white blood cell count, unspecified
[2024-10-14] MEDS: ACETAMINOPHEN 1,000 MG/100 ML VIAL IV STA (15:13)
[2024-10-14 15:27] LABS: INR 1.1 (0.9-1.1); Partial Thromboplastin Time 29 Seconds (21-31); Prothrombin Time 11.9 Seconds (9.0-12.0)
[2024-10-14] MEDS: ALBUT/IPRATROP 3MG/0.5MG NEB 3 ML VIAL NEB STA (15:43)
[2024-10-14] MEDS ORDERED: ALBUT/IPRATROP 3MG/0.5MG NEB 3 ML VIAL NEB PRN (16:26)
--- NOTE | 2024-10-14 16:31 | History & Physical Report ---
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 Clients at the home of been ill with an upper respiratory infection over the last week. Reportedly they went to the physician and did not have any specific diagnosis. She reported feeling weak and dizzy blood pressure checked at the home was low she saw her primary care blood pressure was low she presented to our facility she does not have any cough but she does have glassy eyes and is feels short of breath #Fever and hypoxia. Patient does not have examination of lobar infiltrate nor does she have changes on her chest x-ray however her hypoxia could be from capillary leak from early sepsis. Her initial lactic acid was unremarkable recheck in 2 hours. Patient will have fairly broad testing done including respiratory BioFire including COVID testing tickborne testing CT chest and abdomen pelvis. Urine culture blood culture will be obtained. Will start some doxycycline in case this is tickborne at this time. 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 Clients at the home of been ill with an upper respiratory infection over the last week. Reportedly they went to the physician and did not have any specific diagnosis. She reported feeling weak and dizzy blood pressure checked at the home was low she saw her primary care blood pressure was low she presented to our facility she does not have any cough but she does have glassy eyes and is feels short of breath Allergies Allergy/AdvReac Type Severity Reaction Status Date / Time ofloxacin Allergy Mild RASH Verified 10/14/24 14:55 sulfamethoxazole Allergy Unknown DOESN'T Verified 10/14/24 14:55 REMEMBER trimethoprim Allergy Unknown DOESN'T Verified 10/14/24 14:55 REMEMBER Home Medications Medication Instructions Recorded Confirmed Type cetirizine 10 mg capsule 10 mg PO DAILY PRN Congestion 11/20/18 10/14/24 History multivitamin (Multiple Vitamins 1 tab PO DAILY 07/12/21 10/14/24 History tablet) naproxen 250 mg tablet 250 mg PO BID PRN Pain 12/26/23 10/14/24 History buspirone 15 mg tablet 15 mg PO BID #180 tabs 04/08/24 10/14/24 Rx atorvastatin 20 mg tablet 20 mg PO HS #90 tabs 07/02/24 10/14/24 Rx meclizine 25 mg chewable tablet 25 mg PO BID PRN dizziness #30 tabs 07/23/24 10/14/24 Rx (Antivert) levothyroxine 100 mcg tablet 100 mcg PO DAILYBB 10/14/24 10/14/24 History Past Med/Surg History Problem List (Updated 10/14/24 @ 16:40 by Gilmer Cleaning MD) Fever Dyspnea Low blood pressure reading Lightheadedness Thyroid Nodule Prediabetes Left knee pain Face lesion Generalized anxiety disorder Hypothyroid (Chronic) Hypercholesteremia (Chronic) GERD (gastroesophageal reflux disease) (Chronic) Impaired fasting glucose Severe obstructive sleep apnea Nocturnal hypoxemia Obesity Lumbosacral radiculopathy at L5 (Acute) Situational anxiety Medical History Generalized anxiety disorder Internal hemorrhoids Mucosal abnormality of colon Urinary incontinence Osteomyelitis Chest pain "EST Negative 08-13-13" Surgical History History of ankle surgery S/P section History of lumbar laminectomy Status post tubal ligation S/P lumbar spinal fusion Family History Uncle Tobacco use Laryngeal cancer Mother Cancer History of pancreatectomy Ovarian cancer Grandfather (Maternal) FH: pancreatic cancer Colorectal cancer Daughter Breast cancer Grandmother (Paternal) Breast cancer Myocardial infarction Aunt Breast cancer Other Diabetes Denies family history of Prostate cancer Social History Smoking Status: Never smoker Second Hand Exposure: No; Do You Dip or Chew Tobacco: No; Hx Alcohol Use: No Hx Substance Use: No Preferred Language: Irish Communication Ability: Effective Visual Impairment: No Limitations Hearing Ability: Normal marital status: Current Living Situation: Spouse current occupational status: employed Feels Safe at Home: Yes Diet: regular caffeine: Yes Dental Care, Regularly: Yes Physical Activity Frequency: Does not Exercise Physical Activity Frequency Comment: active at work Seatbelt Use: always Sunscreen Use: Yes Assistive Devices: Glasses Review of Systems Review of Systems: Moderate distress and fatigue no headache, no visual changes no speech or swallowing issues no chest pain, pressure or palpitations My shortness of breath, no cough or wheezes no abdominal pain, nausea or vomiting, diarrhea or constipation no dysuria, hematuria or frequency Some tenderness to her large joints no back pain, CVA tenderness or radicular pain no bruising, bleeding or rashes no focal signs of weakness or numbness or altered sensation no complaints of anxiety or depression.. Physical Exam Physical Exam: The patient appeared well nourished and normally developed. Vital signs as documented. Head exam is normocephalic atraumatic she has coryza and glassy Neck is without JVD, thyromegaly, or carotid bruits. Lungs are clear to auscultation, no focal loss of breath sounds Cardiac exam, Rhythm is regular.. No murmurs, rubs or gallops. Abdominal exam reveals normal bowel sounds, soft non tender, no masses Extremities are nonedematous and both pedal pulses are present Neurologic exam is alert and oriented, no focal loss of strength or sensation Skin is without bruises or rashes Psychologically is without concerns for anxiety or depression.. Results & Data Results & Data Vital Signs (Past 12 Hours) Vital Signs Temp Pulse Pulse Resp BP BP Pulse Ox 10/14/24 15:42 108 H 14 92 10/14/24 15:41 107 H 23 96/61 L 83 L 10/14/24 15:31 111 H 111/79 92 10/14/24 15:05 93 10/14/24 15:00 106 H 30 H 134/82 10/14/24 15:00 87 L 10/14/24 14:41 100 H 24 143/87 H 92 10/14/24 12:58 81 20 107/67 94 10/14/24 12:54 78 10/14/24 11:38 98.4 F 89 19 96/65 L 93 O2 Del Method O2 Flow Rate 10/14/24 15:42 Nebulizer 10/14/24 15:41 Room Air 10/14/24 15:31 Nasal Cannula 6 10/14/24 15:05 Nasal Cannula 6 10/14/24 15:00 10/14/24 15:00 Room Air 10/14/24 14:41 Room Air 10/14/24 12:58 Room Air 10/14/24 12:54 10/14/24 11:38 Room Air Laboratory Results review cbc review chemistry Code Status & VTE Plan VTE Prophylaxis Plan VTE Prophylaxis will be ordered: Yes PG Care Time/CCT Total # of Minutes Spent Total Time Spent with Patient: Total time spent is greater than 50% in coordination of care (as documented) at patient's floor/unit and/or counseling patient: Coding Level of Care Code 51776 INT INP/OBS CARE 3/75MIN Diagnoses Hypothyroid E03.9 Fever R50.9
[2024-10-14 16:42] LABS: Appearance Urine Clear (Clear); Bacteria Urine Automated 2+ (None Seen); Glucose Urine UA Negative (Negative); RBC Urine Automated >20 /hpf (0-2); WBC Urine Automated 21-50 /hpf (0-5)
[2024-10-14 17:18] LABS: Chlamydia pneumoniae PCR Not Detected (NotDetected); Coronavirus 229E PCR Not Detected (NotDetected); Coronavirus CoV-2 (COVID19)PCR Not Detected (NotDetected); Coronavirus HKU1 PCR Not Detected (NotDetected); Coronavirus NL63 PCR Not Detected (NotDetected); Coronavirus OC43PCR Not Detected (NotDetected); Human Metapneumovirus PCR Not Detected (NotDetected); Parainfluenza Virus 1 PCR Not Detected (NotDetected); Parainfluenza Virus 2 PCR Not Detected (NotDetected); Parainfluenza Virus 3 PCR Not Detected (NotDetected); Parainfluenza Virus 4 PCR Not Detected (NotDetected); Respiratory Syncytial VirusPCR Not Detected (NotDetected); Rhinovirus/Enterovirus PCR Not Detected (NotDetected)
--- NOTE | 2024-10-14 17:23 | CT Scan Report ---
EXAMINATION: Abdomen and pelvis CT without CLINICAL HISTORY: Hypoxia and fever, evaluate PNX PRIORS: 04/25/2015. TECHNIQUE: Contiguous axial images were obtained through the abdomen and pelvis without the use of intravenous contrast. Sagittal and coronal reformations are supplied. FINDINGS: Mild to moderate bibasilar airspace consolidation or atelectasis. No pleural effusion. Evaluation of solid organs is limited without the use of intravenous contrast. Allowing for this, the liver, gallbladder, pancreas, spleen, stomach, adrenals, aorta and IVC are morphologically unremarkable. No dilated loops of bowel, pericolonic inflammatory change or bowel obstruction. No ascites, adenopathy or extraluminal gas. Atrophic uterus is present. Urinary bladder under distended. No acute osseous abnormality. Moderate degenerative change at L5-S1. IMPRESSION: 1. No CT evidence of an acute abdominal or pelvic abnormality. 2. Mild opacification or atelectasis at the lung bases, possibly representing pneumonia. Electronically signed by Maxine Alarcon 10-14-2024 5:23 PM
--- NOTE | 2024-10-14 17:26 | CT Scan Report ---
EXAMINATION: Chest CT without CLINICAL HISTORY: Hypoxia, fever, evaluate PNX COMPARISON: Chest radiograph 07/22/2024 TECHNIQUE: Contiguous axial images were obtained through the chest without the use of intravenous contrast. Sagittal and coronal reformations are supplied. FINDINGS: Lungs are well expanded. Bibasilar mild to moderate opacification noted. Very mild opacification in the left upper lobe. No pleural or pericardial effusion. No dominant mass. No adenopathy. Trachea and mainstem bronchi patent. Heart size is normal. No pericardial effusion. Upper abdomen unremarkable. Mild to moderate kyphosis. No acute fracture or pneumothorax. IMPRESSION: Mild to moderate bilateral opacification likely representing pneumonia or less likely atelectasis. No pleural effusion. Electronically signed by Maxine Alarcon 10-14-2024 5:25 PM
[2024-10-14] MEDS: DOXYCYCLINE HYCLATE 100 MG in DEXTROSE 5% MINI-B 100 ML IV SCH (18:16)
[2024-10-14 18:29] LABS: Anion Gap 5.0 (3-11); Blood Urea Nitrogen 17.0 mg/dl (6-23); Calcium 8.1 mg/dl (8.6-10.3); Carbon Dioxide 22.0 mmol/L (21-32); Chloride 111.0 mmol/L (98-107); Creatinine Clr Calc Pharmacy 70.9 ml/min; Glucose 138.0 mg/dl (70-99(Fasting)); Potassium 3.6 mmol/L (3.5-5.1); Sodium 138.0 mmol/L (136-145)
[2024-10-14] MEDS ORDERED: CETIRIZINE HCL 10 MG TABLET PO PRN (19:36)
[2024-10-14] MEDS ORDERED: MECLIZINE HCL 25 MG TAB PO PRN (19:36)
[2024-10-14] MEDS ORDERED: ONDANSETRON INJ 2 MG/ML 2 ML VIAL IV PRN (19:36)
[2024-10-14] MEDS ORDERED: ACETAMINOPHEN 325 MG TAB PO PRN (19:36)
[2024-10-14] MEDS ORDERED: ALUMINUM/MAGNESIUM SUSP 30 ML UDC PO PRN (19:36)
--- NOTE | 2024-10-14 21:47 | Electrocardiogram Report ---
Test Reason : Blood Pressure : */* mmHG Vent. Rate : 84 BPM Atrial Rate : 84 BPM P-R Int : 150 ms QRS Dur : 76 ms QT Int : 348 ms P-R-T Axes : 42 10 -1 degrees QTcB Int : 411 ms Normal sinus rhythm Nonspecific T wave abnormality Abnormal ECG When compared with ECG of 22-Jul-2024 11:39, Nonspecific T wave abnormality, worse in Anterolateral leads QT has shortened Confirmed by Toney Monteiro ([id number]) on 10/14/2024 9:47:14 PM Referred By: Power Wynn Confirmed By: Toney Monteiro
[2024-10-14] MEDS: busPIRone 15 MG TAB PO SCH (22:37)
[2024-10-14] MEDS: LACTATED RINGER'S 1,000 ML IV SCH (22:37)
[2024-10-14 23:21] LABS: A calco-baum cmplx NotReported Not Detected (NotDetected); Bact fragilis Not Reported Not Detected (NotDetected); Blood Culture Id Panel See PCR Comment (NotDetected); C auris Not Reported Not Detected (NotDetected); CTX-M Resistant Gene Not Detected (NotDetected); Calbicans Not Reported Not Detected (NotDetected); Candida glabrata Not Reported Not Detected (NotDetected); Candida krusei Not Reported Not Detected (NotDetected); Cneoformans/gatti Not Reported Not Detected (NotDetected); Cparapsilosis Not Reported Not Detected (NotDetected); Ctropicalis Not Reported Not Detected (NotDetected); E cloacae compx Not Reported Not Detected (NotDetected); Efaecalis Not Reported Not Detected (NotDetected); Efaecium Not Reported Not Detected (NotDetected); Enterobacterales Not Reported DETECTED (NotDetected); Escherichia coli Not Reported DETECTED (NotDetected); H influenzae Not Reported Not Detected (NotDetected); IMP Resistant Gene Not Detected (NotDetected); K aerogenes Not Reported Not Detected (NotDetected); KPC Resistant Gene Not Detected (NotDetected); Koxytoca Not Reported Not Detected (NotDetected); Kpneumoniae grp Not Reported Not Detected (NotDetected); Lmonocyt Not Reported Not Detected (NotDetected); N meningitidis Not Reported Not Detected (NotDetected); NDM Resistant Gene Not Detected (NotDetected); OXA 48 Like Resistant Gene Not Detected (NotDetected); P aeruginosa Not Reported Not Detected (NotDetected); Proteus spp Not Reported Not Detected (NotDetected); Salmonella spp Not Reported Not Detected (NotDetected); Staph lugdunensis Not Reported Not Detected (NotDetected); Staph spp. Not Reported Not Detected (NotDetected); Staphaureus Not Reported Not Detected (NotDetected); Staphepi Not Reported Not Detected (NotDetected); Stenmaltophilia Not Reported Not Detected (NotDetected); Strep agal(GrpB) Not Reported Not Detected (NotDetected); Strep pneum Not Reported Not Detected (NotDetected); Strep pyog (GrpA) Not Reported Not Detected (NotDetected); Strep spp Not Reported Not Detected (NotDetected); VIM Resistant Gene Not Detected (NotDetected); mcr-1 Colistin Resistant Gene Not Detected (NotDetected)
[2024-10-14] MEDS: MULTIVITAMIN TAB PO SCH (23:52)
[2024-10-15 00:09] LABS: Enterobacterales DETECTED (NotDetected)
[2024-10-15] MEDS: NSS + 20MEQ KCL 20 MEQ/1,000 ML BAG IV SCH (01:11)
[2024-10-15] MEDS: cefTRIAXone SODIUM 2,000 MG/50 ML BAG IV SCH (01:11)
[2024-10-15] MEDS: LEVOTHYROXINE SODIUM 100 MCG TABLET PO SCH (06:33)
[2024-10-15] MEDS ORDERED: SODIUM CHLORIDE 0.65% NA SOLN 45 ML (OCEAN) PRN (08:37)
[2024-10-15] MEDS ORDERED: MULTIVITAMIN TAB PO SCH (09:00)
[2024-10-15] MEDS: CETIRIZINE HCL 10 MG TABLET PO SCH (09:09)
[2024-10-15] MEDS: guaiFENesin 600 MG TABCR PO SCH (09:09)
[2024-10-15] MEDS: FLUTICASONE PROPIONATE NA SPR 16 GM BTL SCH (09:10)
[2024-10-15 10:15] LABS: Hematocrit (blood only) 36.1 % (37.0-47.0); Hemoglobin 12.1 g/dl (12.0-16.0); Mean Corpuscular Hemoglobin 29.5 pg (25.0-34.0); Mean Corpuscular Volume 88.0 fL (80.0-100.0); Platelet Count 385 K/uL (130-400); RDW Standard Deviation 46.0 fL (36.4-46.3); Red Blood Count 4.10 M/uL (4.20-5.40); White Blood Count 18.96 K/ul (4.8-10.8)
[2024-10-15 10:34] LABS: Anion Gap 4.0 (3-11); Blood Urea Nitrogen 12.0 mg/dl (6-23); Calcium 8.4 mg/dl (8.6-10.3); Carbon Dioxide 26.0 mmol/L (21-32); Chloride 110.0 mmol/L (98-107); Creatinine Clr Calc Pharmacy 84.2 ml/min; Glucose 134.0 mg/dl (70-99(Fasting)); Magnesium 2.1 mg/dl (1.7-2.4); Potassium 3.9 mmol/L (3.5-5.1); Sodium 140.0 mmol/L (136-145)
[2024-10-15 10:49] LABS: Thyroid Stimulating Hormone 2.761 uIu/ml (0.300-4.500)
--- NOTE | 2024-10-15 13:44 | Hospitalist Progress Note ---
Date of Service October 15, 2024 Assessment & Plan (1) Hypothyroid: (2) Fever: Plan 59-year-old female who presents from work where she became ill she works at a [employer] in [employer]. Clients at the home of been ill with an upper respiratory infection over the last week. Reportedly they went to the physician and did not have any specific diagnosis. She reported feeling weak and dizzy blood pressure checked at the home was low she saw her primary care blood pressure was low she presented to our facility she does not have any cough but she does have glassy eyes and is feels short of breath #Sepsis #Acute hypoxia - tachycardia and hypoxia (into 87%) with leukocytosis - abnormal UA, though pt denies urinary tract symptoms - UCx pending - BCx positive for E coli in <24 hrs - CT chest showing b/l mild to mod opacifications, CT abd / pelivs unremarkable - Biofire neg - cont ceftriaxone and doxy (to cover tick-borne pathogens) - wean oxygen as tolerated #Nasal congestion - guaifenesin, flonase, zyrtec with prn saline nasal spray #Hypothyroidism continues her Synthroid, TSH 2.761 #DVT ppx: lovenox #Dispo: pending clinical improvement (awaiting final cultures, wean oxygen) Admission and Anticipated Discharge Date Admission Date: October 14, 2024 Subjective Admitted yesterday. She stated that she only had low BP and low oxygen level. Denied fevers. She hasn't been feeling well for about 24 hrs prior to presentation. Her biggest complaint this morning is her nasal congestion causing it difficult to breathe. Review of Systems Review of Systems: Comprehensive ROS completed and is otherwise negative. Physical Exam Physical Exam: Gen: no acute distress, sitting upright in bed comfortable HEENT: NC/AT, MMM Lungs: nonlabored breathing, CTAB CVS: s1s2nl, RRR Abd: nl bowel sounds, soft, NT / ND : no jacinto Ext: no edema Neuro: AAOx3 Psych: calm, cooperative Results & Data Results & Data Vital Signs (Past 12 Hours) Vital Signs Temp Pulse Pulse Resp BP Pulse Ox O2 Del Method 10/15/24 08:00 68 10/15/24 08:00 Nasal Cannula 10/15/24 08:00 36.5 C 74 18 99/65 L 94 Nasal Cannula 10/15/24 04:37 36.6 C 69 18 91/60 L 97 Nasal Cannula O2 Flow Rate 10/15/24 08:00 10/15/24 08:00 3 10/15/24 08:00 4 10/15/24 04:37 6 PG Care Time/CCT Total # of Minutes Spent Total Time Spent with Patient: Total time spent is greater than 50% in coordination of care (as documented) at patient's floor/unit and/or counseling patient: Coding Level of Care Code 76701 SUB INP/OBS CARE 3/50MIN Diagnoses Hypothyroid E03.9 Fever R50.9
[2024-10-15] MEDS: NAPROXEN 250 MG TAB PO SCH (20:27)
[2024-10-15] MEDS: ATORVASTATIN 20 MG TAB PO SCH (20:28)
[2024-10-16 04:37] VITALS: RESP 17
[2024-10-16 07:10] LABS: Hematocrit (blood only) 38.9 % (37.0-47.0); Hemoglobin 12.2 g/dl (12.0-16.0); Mean Corpuscular Hemoglobin 28.2 pg (25.0-34.0); Mean Corpuscular Volume 90.0 fL (80.0-100.0); Platelet Count 412 K/uL (130-400); RDW Standard Deviation 47.9 fL (36.4-46.3); Red Blood Count 4.32 M/uL (4.20-5.40); White Blood Count 10.11 K/ul (4.8-10.8)
[2024-10-16 07:33] LABS: Anion Gap 4.0 (3-11); Blood Urea Nitrogen 12.0 mg/dl (6-23); Calcium 8.7 mg/dl (8.6-10.3); Carbon Dioxide 25.0 mmol/L (21-32); Chloride 112.0 mmol/L (98-107); Creatinine Clr Calc Pharmacy 89.2 ml/min; Glucose 108.0 mg/dl (70-99(Fasting)); Magnesium 2.1 mg/dl (1.7-2.4); Potassium 4.3 mmol/L (3.5-5.1); Sodium 141.0 mmol/L (136-145)
[2024-10-16] MEDS: ENOXAPARIN INJ 40 MG/0.4 ML SYR SQ SCH (07:42)
[2024-10-16] MEDS: CETIRIZINE HCL 10 MG TABLET PO SCH (07:42)
[2024-10-16 08:25] VITALS: TEMP 98.1
[2024-10-16 11:22] VITALS: BP 137/86; PULSE 61; O2SAT 98
--- NOTE | 2024-10-16 15:26 | Discharge Summary ---
Discharge Summary Date of Service October 16, 2024 Principal Dx & Hospital Course #1 = Principal Diagnosis (1) Hypothyroid: (2) Fever: Plan 59-year-old female who presents from work where she became ill 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 Clients at the home of been ill with an upper respiratory infection over the last week. Reportedly they went to the physician and did not have any specific diagnosis. She reported feeling weak and dizzy blood pressure checked at the home was low she saw her primary care blood pressure was low she presented to our facility she does not have any cough but she does have glassy eyes and is feels short of breath. Over the past 48 hours, she has significantly improved. She is weaned off of oxygen. She ambulated without hypoxia. Her cultures grew E coli and given otherwise uncomplicated bacteremia, will discharge on 10 day course. #Sepsis - resolved #Acute hypoxia - resolved #E coli bacteremia - tachycardia and hypoxia (into 87%) with leukocytosis - abnormal UA, though pt denies urinary tract symptoms - UCx negative so far (possible abx exposure prior to UA) - BCx positive for E coli in <24 hrs, pansensitive - CT chest showing b/l mild to mod opacifications, CT abd / pelivs unremarkable - Biofire neg - received cefepime in the ED, continued on ceftriaxone and doxy (to cover tick- borne pathogens), d/c on Augmentin / Doxycycline (total 10 day course) - weaned off of oxygen and is now ambulating without hypoxia #Nasal congestion - guaifenesin, flonase, zyrtec with prn saline nasal spray #Hypothyroidism continues her Synthroid, TSH 2.761 Admission HPI Per Admitting Provider 59-year-old female who presents from work where she became ill 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 Clients at the home of been ill with an upper respiratory infection over the last week. Reportedly they went to the physician and did not have any specific diagnosis. She reported feeling weak and dizzy blood pressure checked at the home was low she saw her primary care blood pressure was low she presented to our facility she does not have any cough but she does have glassy eyes and is feels short of breath Discharge Exam Gen: no acute distress, sitting upright in bed comfortable HEENT: NC/AT, MMM Lungs: nonlabored breathing, CTAB CVS: s1s2nl, RRR Abd: nl bowel sounds, soft, NT / ND : no jacinto Ext: no edema Neuro: AAOx3 Psych: calm, cooperative Discharge Plan Discharge Items Patient Disposition: Home - Self-Care Reason For Visit: FEVER, HYOXIA,HYPOTENSION Discharge Diagnosis: Fever Hypoxia Ecoli bacteremia Condition on Discharge: Fair Activity: Resume your previous activity Non-emergency contact: Primary Care Provider Call non-emergency contact if: your symptoms worsen and you have a fever Follow-up/Referrals: Power Wynn, [Primary Care Provider] - Diet: Regular Addtl Attending Provider Instructions: You were noted to have bacteria in your blood. You have improved with antibiotics and will be continued as outpatient. If you are having fevers or worsening symptoms, return to the hospital. Pending Studies at Discharge: Yes Studies:: Tickborne studies Stand-Alone Forms: [facility] [employer], Work/School Release, Smoking Cessation Medications and DC Order Prescriptions: New fluticasone propionate 50 mcg/actuation [place],Suspension 1 spray NA QAM Qty: 1 0RF guaifenesin [Mucinex] 600 mg Tablet Extended Release 12hr 600 mg PO Q12 Qty: 60 0RF doxycycline hyclate 100 mg capsule 100 mg PO BID 7 Days Qty: 14 0RF amoxicillin-pot clavulanate 875-125 mg tablet 1 tab PO BID Qty: 16 0RF cetirizine 10 mg Tablet 10 mg PO QAM Qty: 30 0RF Continued buspirone 15 mg tablet 15 mg PO BID Qty: 180 3RF multivitamin [Multiple Vitamins] Tablet 1 tab PO DAILY Zyrtec 10 mg capsule 10 mg PO DAILY PRN (Reason: Congestion) naproxen 250 mg tablet 250 mg PO BID PRN (Reason: Pain) atorvastatin 20 mg tablet 20 mg PO HS Qty: 90 3RF meclizine [Antivert] 25 mg tablet,chewable 25 mg PO BID PRN (Reason: dizziness) Qty: 30 0RF levothyroxine 100 mcg tablet 100 mcg PO DAILYBB Discharge Orders: Discharge Order (Routine); Ordered 10/16/24 Ordered By: Janet Diaz Admission Data Admit Date/Time: 10/14/24 16:26 Attending Provider: Janet Diaz Admit Provider: Gilmer Cleaning Primary Care Provider: Power Wynn Other Providers: Naeem Lazar Hospital Stay Data Consultations 10/14/24 14:42 ED Decision to Admit Stat Diagnostic Imagining Performed 10/14/24 16:11 CT abd pelvis wo con Routine CT chest diagnostic wo con Routine Pending Results Patient Have Any Pending Studies at Discharge: Yes Discharge Instructions Given to Patient (Per Discharging Provider) You were noted to have bacteria in your blood. You have improved with antibiotics and will be continued as outpatient. If you are having fevers or worsening symptoms, return to the hospital. Total Time Total Time Spent Total Time Spent (In Minutes): 90 Coding Level of Care Code 71272 INP/OBS DISCH >30 MIN Diagnoses Hypothyroid E03.9 Fever R50.9
== END 2024-10-16 16:26 | disposition home or self-care (01) | DRG 872 ==
LOC: ED 10:58 → SUATTDRO 16:26 → EDINP 16:26 → 2E 21:40